=== PATIENT | female | born 1950 | race Caucasian/White ===

== ENCOUNTER 2017-05-19 08:32 | Emergency (ER) | payer BC ==
[2017-05-19 08:52] VITALS: BP 113/75
[2017-05-19] MEDS ORDERED: Sodium Chloride 0.9% 10 ML Syringe FLUSH PRN (08:58)
[2017-05-19] MEDS ORDERED: Ondansetron 4 MG/2 ML SDV IV ONE (08:59)
[2017-05-19] MEDS ORDERED: Loperamide 2 MG Cap PO ONE (09:00)
[2017-05-19] MEDS ORDERED: Sodium Chloride 0.9% 1,000 ML IV ONE (09:10)
--- NOTE | 2017-05-19 09:10 | EDM.PDOC ---
ED HPI GENERAL MEDICAL PROBLEM - General Chief Complaint: Gastrointestinal Problem Stated Complaint: [id number] FEVER DIHERRIA FLU Time Seen by Provider: 05/19/17 08:54 Source of Information: Reports: Patient, RN, RN Notes Reviewed History Limitations: Reports: No Limitations - History of Present Illness INITIAL COMMENTS - FREE TEXT/NARRATIVE: Pt presents to the ER with c/o fever beginning on or Friday. She states the highest the fever got was 102. This weekend she began with N/V/D. She states she feels she is getting quite dehydrated as the diarrhea is very loose and frequent. Onset: Gradual Onset Date: 05/15/17 - Related Data Allergies Allergy/AdvReac Type Severity Reaction Status Date / Time azithromycin Allergy Cannot Verified 09/10/14 20:55 [From Zithromax Z-Ronald] Remember clindamycin Allergy Swelling Verified 09/10/14 20:55 doxycycline [From Vibramycin] Allergy Rash Verified 05/19/17 08:40 erythromycin base Allergy Swelling Verified 09/10/14 20:55 sulfamethoxazole Allergy Cannot Verified 05/19/17 08:40 [From Bactrim] Remember trimethoprim [From Bactrim] Allergy Cannot Verified 05/19/17 08:40 Remember Home Meds: Home Meds Levothyroxine Sodium [Synthroid] 75 mcg PO DAILY 09/10/14 [History] Fluticasone Propionate [Flonase] 2 sprays INH BID PRN 05/19/17 [History] Multivitamin [One Daily] 1 tab PO DAILY 05/19/17 [History] Past Medical History Endocrine/Metabolic History: Reports: Hypothyroidism - Infectious Disease History Infectious Disease History: Reports: Chicken Pox, Mumps Social & Family History - Family History Family Medical History: Noncontributory - Tobacco Use Smoking Status *Q: Never Smoker Second Hand Smoke Exposure: No - Caffeine Use Caffeine Use: Reports: None - Recreational Drug Use Recreational Drug Use: No ED ROS GENERAL - Review of Systems Review Of Systems: ROS reveals no pertinent complaints other than HPI. ED EXAM, GI/ABD - Physical Exam Exam: See Below Exam Limited By: No Limitations General Appearance: Alert, WD/WN, No Apparent Distress Eyes: Bilateral: Normal Appearance, EOMI Ears: Normal External Exam, Hearing Grossly Normal Nose: Normal Inspection Throat/Mouth: Normal Inspection, Normal Voice, No Airway Compromise, Other (dry mucous membranes) Head: Atraumatic, Normocephalic Neck: Normal Inspection, Supple, Non-Tender, Full Range of Motion Respiratory/Chest: No Respiratory Distress, Lungs Clear, Normal Breath Sounds, No Accessory Muscle Use, Chest Non-Tender Cardiovascular: Normal Peripheral Pulses, Regular Rate, Rhythm, No Edema, No Gallop, No JVD, No Murmur, No Rub GI/Abdominal Exam: Normal Bowel Sounds, Soft, No Organomegaly, No Distention, No Abnormal Bruit, No Mass, Tender (Female) Exam: Deferred Rectal (Female) Exam: Deferred Back Exam: Normal Inspection, Full Range of Motion Extremities: Normal Inspection, Normal Range of Motion, Non-Tender, No Pedal Edema, Normal Capillary Refill Neurological: Alert, Oriented, CN II-XII Intact, Normal Cognition, Normal Gait, Normal Reflexes, No Motor/Sensory Deficits Psychiatric: Normal Affect, Normal Mood Skin Exam: Warm, Dry, Intact, Normal Color, No Rash Lymphatic: No Adenopathy Course - Vital Signs Last Recorded V/S: Last Vital Signs Temp 97 F 05/19/17 08:50 Pulse 95 05/19/17 08:50 Resp 16 05/19/17 08:50 BP 113/75 05/19/17 08:50 Pulse Ox 98 05/19/17 08:50 - Orders/Labs/Meds Orders: Active Orders 24 hr Category Date Time Status Peripheral IV Care [RC] . DIRECTED Care 05/19/17 08:59 Active CULTURE STREP A CONFIRMATION [RM] Stat Lab 05/19/17 08:35 Results STREP SCRN A RAPID W CULT CONF [RM] Stat Lab 05/19/17 08:35 Results UA W/MICROSCOPIC [URIN] Stat Lab 05/19/17 08:58 Ordered Sodium Chloride 0.9% [Saline Flush] Med 05/19/17 08:58 Active 10 ml FLUSH ASDIRECTED PRN Peripheral IV Insertion Adult [OM.PC] Stat Oth 05/19/17 08:58 Ordered Medication Orders Sodium Chloride (Saline Flush) 10 ml FLUSH ASDIRECTED PRN PRN Reason: Keep Vein Open Last Admin: 05/19/17 09:12 Dose: 10 ml Labs: Laboratory Tests 05/19/17 05/19/17 Range/Units 09:08 09:08 WBC 5.5 (5.0-10.0) 10^3/uL RBC 4.59 (4.2-5.4) 10^6/uL Hgb 14.4 (12.0-16.0) g/dL Hct 43.1 (37.0-47.0) % MCV 93.9 (80-100) fL MCH 31.4 (27.0-34.0) pg MCHC 33.4 (33.0-35.0) g/dL Plt Count 194 (150-450) 10^3/uL Neut % (Auto) 68.2 (42.2-75.2) % Lymph % (Auto) 15.8 L (20.5-50.1) % [place] % (Auto) 12.9 H (2-8) % Eos % (Auto) 2.9 (1.0-3.0) % Baso % (Auto) 0.2 (0.0-1.0) % Add Manual Diff Yes Neutrophils % (Manual) 69 (42-75) % Band Neutrophils % 3 % Lymphocytes % (Manual) 16 L (20-50) % Monocytes % (Manual) 9 H (2-8) % Eosinophils % (Manual) 3 (1-3) % Sodium 136 (135-145) mmol/L Potassium 3.8 (3.6-5.0) mmol/L Chloride 102 (101-111) mmol/L Carbon Dioxide 25.0 (21.0-31.0) mmol/L Anion Gap 12.8 BUN 12 (7-18) mg/dL Creatinine 0.8 (0.6-1.3) mg/dL Est Cr Clr Drug Dosing 63.93 mL/min Estimated GFR (MDRD) > 60 BUN/Creatinine Ratio 15.00 Glucose 104 (74-105) mg/dL Calcium 8.5 (8.4-10.2) mg/dl Total Bilirubin 0.8 (0.2-1.0) mg/dL AST 24 (10-42) IU/L ALT 14 (10-60) IU/L Alkaline Phosphatase 48 (42-121) IU/L Total Protein 7.7 (6.7-8.2) g/dl Albumin 4.4 (3.2-5.5) g/dl Globulin 3.3 Albumin/Globulin Ratio 1.33 Rapid Strep: Negative Influenza A & B: Negative Meds: Medications Generic Name Dose Route Start Last Admin Trade Name Emerald PRN Reason Stop Dose Admin Sodium Chloride 10 ml 05/19/17 08:58 05/19/17 09:12 Saline Flush FLUSH 10 ml ASDIRECTED PRN Administration Keep Vein Open Discontinued Medications Generic Name Dose Route Start Last Admin Trade Name Emerald PRN Reason Stop Dose Admin Sodium Chloride 1,000 mls @ 999 mls/hr 05/19/17 09:10 05/19/17 09:11 Normal Saline IV 05/19/17 10:10 999 mls/hr .BOLUS ONE Administration Loperamide HCl 4 mg 05/19/17 09:00 05/19/17 09:10 Imodium PO 05/19/17 09:01 4 mg ONETIME ONE Administration Ondansetron HCl 4 mg 05/19/17 08:59 05/19/17 09:11 Zofran IV 05/19/17 09:00 4 mg ONETIME ONE Administration Departure - Departure Time of Disposition: 10:49 Disposition: Home, Self-Care 01 Condition: Fair Clinical Impression: Vomiting, Diarrhea, Gastroenteritis - Discharge Information Instructions: Dehydration, Adult, [id number], Viral Gastroenteritis, Adult, Nspy-do-[id number], Nausea and Vomiting, Adult, Iorb-ir-Bazl Forms: ED Department Discharge Additional Instructions: Use Imodium or generic like for diarrhea RX: Zofran for nausea Frequent sips of liquids to stay hydrated Follow up with your primary care facility - My Orders Last 24 Hours: My Active Orders 05/19/17 08:35 CULTURE STREP A CONFIRMATION [RM] Stat STREP SCRN A RAPID W CULT CONF [RM] Stat 05/19/17 08:58 UA W/MICROSCOPIC [URIN] Stat Sodium Chloride 0.9% [Saline Flush] 10 ml FLUSH ASDIRECTED PRN Peripheral IV Insertion Adult [OM.PC] Stat 05/19/17 08:59 Peripheral IV Care [RC] . DIRECTED - Assessment/Plan Last 24 Hours: My Active Orders 05/19/17 08:35 CULTURE STREP A CONFIRMATION [RM] Stat STREP SCRN A RAPID W CULT CONF [RM] Stat 05/19/17 08:58 UA W/MICROSCOPIC [URIN] Stat Sodium Chloride 0.9% [Saline Flush] 10 ml FLUSH ASDIRECTED PRN Peripheral IV Insertion Adult [OM.PC] Stat 05/19/17 08:59 Peripheral IV Care [RC] . DIRECTED
[2017-05-19 09:33] LABS: CHLORIDE,CL 102 mmol/L (101-111); SODIUM,NA 136 mmol/L (135-145)
== END 2017-05-19 11:13 | disposition home or self-care (01) ==
LOC: DL.ED 08:32
DX: K52.9 Noninfective gastroenteritis and colitis, unspecified (principal); E03.9 Hypothyroidism, unspecified; Z88.1 Allergy status to other antibiotic agents; Z88.2 Allergy status to sulfonamides; Z79.899 Other long term (current) drug therapy
CPT/HCPCS: 36415; 80053; 85025; 87045; 87081; 87430; 87493; 87804; 87899; 96361; 96374; 99283; A9270; J2405; J7030; J7050; 87046

== ENCOUNTER 2020-07-06 22:27 | Emergency (ER) | payer BC, MEDICARE ==
[2020-07-06] MEDS ORDERED: Magnesium Citrate Solution 296 ML Bottle PO ONE (22:28)
--- NOTE | 2020-07-06 22:54 | EDM.PDOC ---
ED HPI GENERAL MEDICAL PROBLEM - General Chief Complaint: Abdominal Pain Stated Complaint: UPPER ABDOMIN PAIN, UNABLE TO GO TO BATHROOM Time Seen by Provider: 07/06/20 22:50 Source of Information: Reports: Patient History Limitations: Reports: No Limitations - History of Present Illness INITIAL COMMENTS - FREE TEXT/NARRATIVE: Patient comes emergency department today with complaints of epigastric abdominal pain. She relates for the past 4 to 5 days she has had increasing waxing and waning pain in the epigastric region. She has not had a bowel movement from over about 6 to 7 days. She did try an enema last night but did not have much for results. She does take only 1 capful of MiraLAX a day and she has been drinking about 4-5 bottles of water a day. She has had some nausea without vomiting. She has had no surgeries in her abdomen in the past. No fever no chills. No diarrhea. No bloating or distention. She has been passing flatus. No hematuria dysuria or urinary frequency. Epigastric Pain Score (Numeric/FACES): 8 - Related Data Allergies Allergy/AdvReac Type Severity Reaction Status Date / Time azithromycin Allergy Cannot Verified 09/10/14 20:55 [From Zithromax Z-Ronald] Remember clindamycin Allergy Swelling Verified 09/10/14 20:55 doxycycline [From Vibramycin] Allergy Rash Verified 05/19/17 08:40 erythromycin base Allergy Swelling Verified 09/10/14 20:55 sulfamethoxazole Allergy Cannot Verified 05/19/17 08:40 [From Bactrim] Remember trimethoprim [From Bactrim] Allergy Cannot Verified 05/19/17 08:40 Remember Home Meds: Home Meds Levothyroxine Sodium [Synthroid] 75 mcg PO DAILY 09/10/14 [History] Fluticasone Propionate [Flonase] 2 sprays INH BID PRN 05/19/17 [History] Multivitamin [One Daily] 1 tab PO DAILY 05/19/17 [History] Past Medical History Endocrine/Metabolic History: Reports: Hypothyroidism - Infectious Disease History Infectious Disease History: Reports: Chicken Pox, Mumps Social & Family History - Family History Family Medical History: No Pertinent Family History - Caffeine Use Caffeine Use: Reports: None ED ROS GENERAL - Review of Systems Review Of Systems: Comprehensive ROS is negative, except as noted in HPI. ED EXAM, GI/ABD - Physical Exam Exam: See Below Exam Limited By: No Limitations General Appearance: Alert, WD/WN, No Apparent Distress Eyes: Bilateral: EOMI Ears: Normal External Exam, Normal TMs Nose: Normal Inspection, Normal Mucosa Throat/Mouth: Normal Inspection, Normal Lips, Normal Voice, No Airway Compromise, Other Head: Atraumatic, Normocephalic Neck: Normal Inspection, Supple, Non-Tender, Full Range of Motion Respiratory/Chest: No Respiratory Distress Cardiovascular: Normal Peripheral Pulses GI/Abdominal Exam: Soft, Tender (Tenderness in the epigastric region without guarding or rebound.), Abnormal Bowel Sounds (Minimal to no bowel sounds). No: Distended, Guarding, Rigid, Hernia (Female) Exam: Deferred Rectal (Female) Exam: Deferred Back Exam: Normal Inspection, Full Range of Motion Extremities: Normal Inspection, Normal Range of Motion, Non-Tender, No Pedal Edema, Normal Capillary Refill Neurological: Alert, Oriented, No Motor/Sensory Deficits Psychiatric: Normal Affect Skin Exam: Warm, Dry, Intact, Normal Color, No Rash Lymphatic: No Adenopathy Course - Vital Signs Last Recorded V/S: Last Vital Signs Temp 97 F 07/06/20 22:57 Pulse 83 07/06/20 22:57 Resp 16 07/06/20 22:57 BP 117/81 07/06/20 22:57 Pulse Ox 99 07/06/20 22:57 - Orders/Labs/Meds Orders: Active Orders 24 hr Category Date Time Status Enema [RC] ASDIRECTED Care 07/06/20 23:31 Active UA RFX PRATIBHA AND CULT IF INDIC [URIN] Stat Lab 07/06/20 23:02 Ordered Labs: Laboratory Tests 07/06/20 07/06/20 07/06/20 Range/Units 23:10 23:10 23:10 WBC 8.7 (5.0-10.0) 10^3/uL RBC 4.14 L (4.2-5.4) 10^6/uL Hgb 12.9 D (12.0-16.0) g/dL Hct 38.9 (37.0-47.0) % MCV 94.0 (80-100) fL MCH 31.2 (27.0-34.0) pg MCHC 33.2 (33.0-35.0) g/dL Plt Count 225 (150-450) 10^3/uL Neut % (Auto) 64.8 (42.2-75.2) % Lymph % (Auto) 21.6 (20.5-50.1) % [place] % (Auto) 9.7 H (2-8) % Eos % (Auto) 3.6 H (1.0-3.0) % Baso % (Auto) 0.3 (0.0-1.0) % Sodium 142 (136-145) mmol/L Potassium 4.0 (3.5-5.1) mmol/L Chloride 104 (98-107) mmol/L Carbon Dioxide 28 (21-32) mmol/L Anion Gap 14.0 H (7-13) mEq/L BUN 21 H (7-18) mg/dL Creatinine 0.92 (0.55-1.02) mg/dL Est Cr Clr Drug Dosing 53.39 mL/min Estimated GFR (MDRD) > 60 BUN/Creatinine Ratio 22.8 (No establ ref range) Glucose 104 H (70-99) mg/dL Lactic Acid 0.5 (0.4-2.0) mmol/L Calcium 8.5 (8.5-10.1) mg/dL Total Bilirubin 0.3 (0.2-1.0) mg/dL AST 16 (15-37) U/L ALT 23 (14-59) U/L Alkaline Phosphatase 79 (46-116) U/L C-Reactive Protein < 0.2 (0.0-0.9) mg/dL Total Protein 7.4 (6.4-8.2) g/dL Albumin 3.9 (3.4-5.0) g/dL Globulin 3.5 Albumin/Globulin Ratio 1.1 Lipase 98 (73-393) U/L Meds: Medications Discontinued Medications Generic Name Dose Route Start Last Admin Trade Name Freq PRN Reason Stop Dose Admin Lactulose 20 gm 07/07/20 03:19 Lactulose Soln 10 Gm/15 Ml 30 Ml Ud Cup PO 07/07/20 03:20 ONETIME ONE Polyethylene Glycol 51 gm 07/06/20 23:05 07/07/20 01:25 Polyethylene Glycol 3350 Powder 17 Gm Packet PO 07/06/20 23:06 51 gm ONETIME ONE Administration Polyethylene Glycol 51 gm 07/07/20 01:18 Polyethylene Glycol 3350 Powder 17 Gm Packet PO 07/07/20 01:19 ONETIME ONE - Re-Assessments/Exams Free Text/Narrative Re-Assessment/Exam: Patient was given 3 packets of MiraLAX and a large glass of water in the emergency department. Her laboratory evaluation is rather unremarkable. She has a normal white blood cell count, normal lactic acid normal CRP. Normal liver enzymes. Her x-ray per radiology says normal abdominal series although when I review it there is clearly no dilated loops of bowel no air-fluid levels there is a rather moderate to large amount of stool especially in the rectal vault that was not commented on for the radiologist. We will try soapsuds enema to see if we get some relief for this patient. 07/07/20 03:24 We attempted multiple soapsuds enemas in the emergency department with little to no bowel movements. Rectal exam by myself there is no stool in the rectal vault. Patient really was not a great candidate for enemas as she was unable to really hold any of the fluid. She was given 20 g of lactulose. We will discharge her home at this time. In the morning I like her to drink a half a bottle of magnesium citrate when she wakes up and then another half in 1 hour. I talked with her about the importance of bowel regimen with MiraLAX. She really needs to increase her fluids. She is comfortable this plan her questions were answered. Departure - Departure Time of Disposition: 03:21 Disposition: Home, Self-Care 01 Clinical Impression: Constipation Qualifiers: Constipation type: unspecified constipation type Qualified Code(s): K59.00 - Constipation, unspecified - Discharge Information Instructions: Constipation, Adult, [id number] Forms: ED Department Discharge Additional Instructions: You have to drink plenty of fluids every day. 10-12 10 ounce glasses a day. Any caffeine drink that you have you have to drink 2 extra glasses In the morning drink 1/2 the bottle of magnesium citrate. 1 hour later drink the other half. 2 hours after the magnesium citrate 3 capfuls of Miralax in a large glass of water. You will have to titrate your miralax over the next few days if still having hard stools increase by one capful everyday until easy smooth bowel movement and then slowly decrease to easy movements. Return to the ED if new or worsening symptoms. Sepsis Event Note (ED) - Focused Exam Vital Signs: Vital Signs Temp Pulse Resp BP Pulse Ox 07/06/20 22:57 97 F 83 16 117/81 99 - My Orders Last 24 Hours: My Active Orders 07/06/20 23:02 UA RFX PRATIBHA AND CULT IF INDIC [URIN] Stat 07/06/20 23:31 Enema [RC] ASDIRECTED - Assessment/Plan Last 24 Hours: My Active Orders 07/06/20 23:02 UA RFX PRATIBHA AND CULT IF INDIC [URIN] Stat 07/06/20 23:31 Enema [RC] ASDIRECTED
[2020-07-06 23:02] VITALS: BP 117/81; PULSE 83
[2020-07-06] MEDS ORDERED: Polyethylene Glycol 3350 Powder 17 GM Packet PO ONE (23:05)
[2020-07-06 23:34] LABS: CHLORIDE,CL 104 mmol/L (98-107); SODIUM,NA 142 mmol/L (136-145)
--- NOTE | 2020-07-07 00:03 | CR ---
PROCEDURE INFORMATION: Exam: XR Abdomen Exam date and time: 07/06/2020 11:18 PM Age: 69 years old Clinical indication: Other: Pain; Additional info: Constipation TECHNIQUE: Imaging protocol: XR of the abdomen. Views: 2 Views. Upright and supine views. COMPARISON: No relevant prior studies available. FINDINGS: Gastrointestinal tract: Gas and stool are present in the colon. No dilated bowel loops. Intraperitoneal space: Normal. No free air. Bones/joints: Suspect arthritis right hip. Mild spondylosis. IMPRESSION: Negative abdominal series.
[2020-07-07] MEDS ORDERED: Polyethylene Glycol 3350 Powder 17 GM Packet PO ONE (01:18)
[2020-07-07] MEDS ORDERED: Lactulose Soln 10 GM/15 ML 30 ML UD Cup PO ONE (03:19)
[2020-07-07] MEDS ORDERED: Magnesium Citrate Solution 296 ML Bottle ONE (03:24)
== END 2020-07-07 03:50 | disposition home or self-care (01) ==
LOC: DL.ED 22:27
DX: K59.00 Constipation, unspecified (principal); E03.9 Hypothyroidism, unspecified; Z88.1 Allergy status to other antibiotic agents; Z79.899 Other long term (current) drug therapy
CPT/HCPCS: 36415; 74019; 80053; 83605; 83690; 85025; 86140; 99283; A9270-GY

== ENCOUNTER 2020-07-26 06:24 | Day surgery (SDC) | payer BC, MEDICARE ==
[~2020-07-26 06:24] MED LIST: Dextrose 5%-0.45% NaCl 1,000 ML IV SCH; Midazolam 1 MG/ML 2 ML SDV ONE; Sodium Chloride 0.9% 10 ML Syringe FLUSH PRN; fentaNYL 100 MCG/2 ML SDV ONE
[2020-07-26] MEDS ORDERED: Midazolam 1 MG/ML 2 ML SDV IV ONE ×7 (06:25→07:31)
[2020-07-26] MEDS ORDERED: fentaNYL 100 MCG/2 ML SDV IV ONE ×3 (06:25→07:16)
[2020-07-26 09:48] VITALS: BP 101/64; PULSE 54
--- NOTE | 2020-07-26 11:02 | OR ---
DATE: 07/26/2020 PROCEDURES: Total colonoscopy, narrow-band imaging, and multiple cold snare polypectomies. INSTRUMENT USED: PCF-H190DL Olympus video colonoscope. PREMEDICATIONS: Fentanyl 100 mcg intravenous, Versed 4 mg intravenous, nasal O2 cannula. The procedure was done under pulse oximetry, BP recording, and shelter monitor. INDICATION: The patient with previous colonic tubular adenoma and recent progressive constipation, unexplained and not responsive to medical measures. Colonoscopic examination is done for detection of any polypoid lesions and removal, endoscopic hemostasis therapy if needed. DESCRIPTION OF PROCEDURE: Initial rectal exam showed some diffuse perianal erythema. Rigid anoscopy was normal. The colonoscope was passed with ease up to the ileocecal area. Numerous scattered diverticula were noted in the distal left colon along with deformity. Multiple diminutive polyps, 2 in number were noted in the distal descending colon area, NBI views were obtained, photographs were taken, cold snare polypectomies were done, the tissues were retrieved and sent for histopathology. The colon was found to be long and redundant. Photographs were taken of the normal-appearing cecum identified by landmarks of appendiceal orifice and double-bulged ileocecal folds. No bleeding was noted from any of the visualized areas at the commencement of the examination. The bowel preparation was found to be adequate, [place] scale 3 in all the regions, total score 9. No stricture. No vascular ectasia. No large isolated ulcerations seen. No evidence of diffuse inflammatory bowel disease in the form of friability, contact bleeding, or ulcerations. Probing the proximal sides of folds and flexures using adequate distention and clearing up the stool material, withdrawal of the scope was made, cecum to rectum time over 6 minutes. No bleeding was noted from any of the visualized areas at the completion of examination. IMPRESSION: 1. Diverticulosis. 2. Multiple colonic polyps. The patient tolerated the procedure well. [facility] /[id number]
== END 2020-07-26 09:56 | disposition home or self-care (01) ==
LOC: DL.ENDO 06:24
PROVIDERS: ATTEND Internal Medicine Gastroenterology
DX: D12.4 Benign neoplasm of descending colon (principal); K57.30 Diverticulosis of large intestine without perforation or abscess without bleeding; K59.00 Constipation, unspecified; E03.9 Hypothyroidism, unspecified; Z88.1 Allergy status to other antibiotic agents; Z90.49 Acquired absence of other specified parts of digestive tract; Z98.890 Other specified postprocedural states
CPT/HCPCS: 88305; J2250; J3010; J7042

== ENCOUNTER 2024-08-08 14:17 | Emergency (ER) | payer MEDICARE, BC ==
[2024-08-08 14:46] LABS: BASOPHILS PERCENT AUTO 0.5 % (0.0-1.0); EOSINOPHILS PERCENT AUTO 3.2 % (1.0-3.0); HEMATOCRIT 39.9 % (37.0-47.0); HEMOGLOBIN 12.8 g/dL (12.0-16.0); LYMPHOCYTES PERCENT AUTO 30.5 % (20.5-50.1); MEAN CORPUSCULAR HEMOGLOBIN 31.1 pg (27.0-34.0); MEAN CORPUSCULAR HGB CONC 32.1 g/dL (33.0-35.0); MEAN CORPUSCULAR VOLUME 96.8 fL (80-100); MONOCYTES PERCENT AUTO 11.5 % (2-8); NEUTROPHILS PERCENT AUTO 54.3 % (42.2-75.2); PLATELET COUNT,PLT 228 10^3/uL (150-450); RED BLOOD CELL COUNT 4.12 10^6/uL (4.2-5.4); WHITE BLOOD CELL COUNT,WBC 6.5 10^3/uL (5.0-10.0)
[2024-08-08 15:05] LABS: A/G RATIO 1.1; ALANINE AMINOTRANSFERASE,ALT 18 U/L (14-59); ALBUMIN 3.9 g/dL (3.4-5.0); ALKALINE PHOSPHATASE 71 U/L (46-116); ANION GAP 11.8 mEq/L (7-13); ASPARTATE AMNIOTRANSFERASE,AST 14 U/L (15-37); BILIRUBIN TOTAL 0.3 mg/dL (0.2-1.0); BLOOD UREA NITROGEN,BUN 16 mg/dL (7-18); CALCIUM 9.2 mg/dL (8.5-10.1); CARBON DIOXIDE,CO2 30 mmol/L (21-32); CHLORIDE,CL 105 mmol/L (98-107); CREATININE 1.23 mg/dL (0.55-1.02); ESTIMATED GFR 47 mL/min (>=60); GLUCOSE RANDOM 97 mg/dL (70-99); POTASSIUM,K 3.8 mmol/L (3.5-5.1); PROTEIN TOTAL,TP 7.3 g/dL (6.4-8.2); SODIUM,NA 143 mmol/L (136-145)
[2024-08-08 15:37] VITALS: BP 107/59; PULSE 62
== END 2024-08-08 15:32 | disposition home or self-care (01) ==
LOC: DL.ED 14:17
DX: R00.2 Palpitations (principal); E03.9 Hypothyroidism, unspecified; Z88.1 Allergy status to other antibiotic agents; Z88.2 Allergy status to sulfonamides; Z88.8 Allergy status to other drugs, medicaments and biological substances; Z79.899 Other long term (current) drug therapy
CPT/HCPCS: 36415; 80053; 83735; 85025; 93005; 93010; 99284; 99285